=== PATIENT | male | born 1965 | race Caucasian/White ===

== ENCOUNTER 2017-02-04 13:29 | Emergency (ER) | payer MEDICARE, OTHER | END 2017-02-04 18:00 | disposition home or self-care (01) | LOC: ER1 13:29 | DX: R53.1 Weakness (principal); R62.50 Unspecified lack of expected normal physiological development in childhood | CPT/HCPCS: 70450; 71010; 81001; 87086; 99285 ==

== ENCOUNTER → 2017-03-10 | Outpatient (CLI) | payer MEDICARE, OTHER ==
[~2017-03-10] MED LIST: AUGMENTIN TAB875 MG PO; CALCITRATE + V1 EACH PO; CLARITIN10 MG PO; DEBROX15 ML OT; DEPAKOTE500 MG PO; FIBERCON 625 M625 MG PO; KLONOPIN TAB 00.5 MG PO; KLONOPIN1 MG PO; LIPITOR TAB 1010 MG PO; LUVOX TAB 100100 MG PO; OMEGA-31000 MG PO; PRILOSEC OTC20 MG PO; TRAZODONE HCL100 MG PO; VISTARIL25 MG PO; VITAMIN C 500500 MG PO; ZANTAC 150 MG150 MG PO
[2017-03-10 10:45] LABS: HEMOGLOBIN 14.3 gm/dl (14.0-17.5); RED BLOOD COUNT 4.37 M/UL (4.20-5.50); WHITE BLOOD COUNT 9.4 K/UL (4.5-11.0)
[2017-03-10 12:07] LABS: BUN/CREATININE RATIO 30 (0-10)
== END ==
LOC: LAB 09:53
PROVIDERS: Nurse Practitioner Primary Care
DX: Z51.81 Encounter for therapeutic drug level monitoring (principal); G40.909 Epilepsy, unspecified, not intractable, without status epilepticus; F84.0 Autistic disorder; R27.0 Ataxia, unspecified; Z79.899 Other long term (current) drug therapy
CPT/HCPCS: 36415; 80053; 80299; 85025

== ENCOUNTER → 2017-03-13 | Outpatient (CLI) | payer MEDICARE, OTHER ==
[2017-03-13 12:55] LABS: BUN/CREATININE RATIO 32 (0-10)
== END ==
LOC: LAB 12:11
PROVIDERS: Nurse Practitioner Primary Care
DX: E87.5 Hyperkalemia (principal)
CPT/HCPCS: 36415; 80048

== ENCOUNTER → 2017-04-02 | Outpatient (CLI) | payer MEDICARE, OTHER | LOC: RAD 12:22 | DX: M79.641 Pain in right hand (principal) | CPT/HCPCS: 73130 ==

== ENCOUNTER 2017-04-26 17:47 | Inpatient (IN) | payer MEDICARE, OTHER ==
[~2017-04-26] VITALS: Ht 165.1 cm; Wt 69.5 kg
[2017-04-26 18:53] LABS: RED BLOOD COUNT 4.69 M/UL (4.20-5.50); WHITE BLOOD COUNT 6.5 K/UL (4.5-11.0)
[2017-04-26 19:12] LABS: BUN/CREATININE RATIO 28 (0-10)
[2017-04-26] MEDS ORDERED: VITAMIN C 500500 MG PO (22:33)
[2017-04-26] MEDS ORDERED: CLARITIN10 MG PO (22:33)
[2017-04-26] MEDS ORDERED: PRILOSEC OTC20 MG PO (22:33)
[2017-04-26] MEDS ORDERED: OMEGA-31000 MG PO (22:34)
[2017-04-26] MEDS ORDERED: VISTARIL25 MG PO (22:35)
[2017-04-26] MEDS ORDERED: FIBERCON 625 M625 MG PO (22:35)
[2017-04-26] MEDS ORDERED: LUVOX TAB 100100 MG PO (22:36)
[2017-04-26] MEDS ORDERED: DEPAKOTE500 MG PO (22:36)
[2017-04-26] MEDS ORDERED: CALCITRATE + V1 EACH PO (22:36)
[2017-04-26] MEDS ORDERED: KLONOPIN TAB 00.5 MG PO (22:37)
[2017-04-26] MEDS ORDERED: KLONOPIN1 MG PO (22:38)
[2017-04-26] MEDS ORDERED: LIPITOR TAB 1010 MG PO (22:38)
[2017-04-26] MEDS ORDERED: ZANTAC 150 MG150 MG PO (22:39)
[2017-04-26] MEDS ORDERED: TRAZODONE HCL100 MG PO (22:39)
[2017-04-27 03:55] LABS: WHITE BLOOD COUNT 4.9 K/UL (4.5-11.0)
[2017-04-27 04:02] LABS: HEMOGLOBIN 12.7 gm/dl (14.0-17.5); RED BLOOD COUNT 3.92 M/UL (4.20-5.50)
[2017-04-27 04:14] LABS: BUN/CREATININE RATIO 33 (0-10)
[2017-04-27] MEDS ORDERED: DEBROX15 ML OT (22:32)
[2017-04-28 03:32] LABS: HEMOGLOBIN 11.4 gm/dl (14.0-17.5); RED BLOOD COUNT 3.54 M/UL (4.20-5.50)
[2017-04-28 03:34] LABS: WHITE BLOOD COUNT 6.9 K/UL (4.5-11.0)
[2017-04-28 03:59] LABS: BUN/CREATININE RATIO 28 (0-10)
[2017-04-29 06:06] LABS: HEMOGLOBIN 11.9 gm/dl (14.0-17.5); RED BLOOD COUNT 3.68 M/UL (4.20-5.50); WHITE BLOOD COUNT 7.1 K/UL (4.5-11.0)
[2017-04-29 06:19] LABS: BUN/CREATININE RATIO 28 (0-10)
[2017-05-02] MEDS ORDERED: KLONOPIN TAB 00.5 MG PO (13:19)
[2017-05-02] MEDS ORDERED: AUGMENTIN TAB875 MG PO (13:26)
== END 2017-05-02 14:25 | DRG 177 ==
LOC: ER1 17:47 → CCU 20:25 → ZEROF 20:25 → CCU 21:47 → MED SURG 4 04-28 16:41
PROVIDERS: Emergency Medicine; Family Medicine; Hospitalist; ADMIT Internal Medicine
DX: J69.0 Pneumonitis due to inhalation of food and vomit (principal); J96.01 Acute respiratory failure with hypoxia; R53.2 Functional quadriplegia; E87.3 Alkalosis; F84.0 Autistic disorder; E87.2 Acidosis; F72 Severe intellectual disabilities; D69.6 Thrombocytopenia, unspecified; I34.0 Nonrheumatic mitral (valve) insufficiency; G40.909 Epilepsy, unspecified, not intractable, without status epilepticus; I10 Essential (primary) hypertension; E78.5 Hyperlipidemia, unspecified; K58.9 Irritable bowel syndrome, unspecified; F42.9 Obsessive-compulsive disorder, unspecified; E78.00 Pure hypercholesterolemia, unspecified; M85.80 Other specified disorders of bone density and structure, unspecified site; K59.09 Other constipation; R13.10 Dysphagia, unspecified; D64.9 Anemia, unspecified; Z79.899 Other long term (current) drug therapy
CPT/HCPCS: 36415; 36600; 71010; 74230; 80048; 80053; 80185; 81001; 82550; 82553; 82803; 83605; 83735; 83874; 83880; 84484; 85025; 85027; 87040; 92526; 92610; 92611-GN; 94640; 94664; 96361; 96374; 96375; 97110; 97530; 99285; J0295; J1650; J1885; J1956; J2930; J7030; J7050; Q0177